=== PATIENT | male | born 1980 | race Caucasian/White ===

== ENCOUNTER → 2018-03-22 | Outpatient (REF) | payer OTHER ==
[2018-03-22 20:35] LABS: % NORMAL FORMS 9 % (>=4); IMMOTILITY 45 %; NON PROGRESSIVE MOTILITY (c) 18 %; PROGRESSIVE MOTILITY (a) 37 % (>=32); SEMEN APPEARANCE OPAQUE (OPAQUE); SEMEN VISCOSITY LIQUID (LIQUID); SEMEN VOLUME 3.6 ml (4.0-5.0); SPERM ABNORMAL FORMS WBC'S NOTED; SPERM CONCENTRATION 19.8 M/ml (>=15.0); SPERM# 71.2 M/Ejac (>=39); TOTAL MOTILITY 55 % (>=40); WBC CONCENTRATION >1 M/ml (<=1 M/ml)
[2018-03-22 20:36] LABS: TOTAL FUNCTIONAL 5.5 M/Ejac.; TOTAL PROGRESSIVE SPERM 26.6 M/Ejac.
== END ==
LOC: M LAB REF 15:56
DX: N46.9 Male infertility, unspecified (principal)
CPT/HCPCS: 89320

== ENCOUNTER 2018-12-26 17:26 | Emergency (ER) | payer OTHER ==
[~2018-12-26] VITALS: Ht 180.3 cm; Wt 93.2 kg
[2018-12-26] MEDS ORDERED: KETOROLAC 30 MG/ML VIAL (J1885) IV ONE (18:00)
[2018-12-26] MEDS ORDERED: NS 1,000 ML IV ONE (18:00)
[2018-12-26] MEDS ORDERED: ACETAMINOPHEN 500 MG TAB PO ONE (18:00)
[2018-12-26] MEDS ORDERED: ONDANSETRON 4MG/2ML VIAL (J2405) IV ONE (18:00)
[2018-12-26 18:04] LABS: BASO # 0.1 10^3/uL (0.0-0.2); BASO % 0.5 % (0.0-1.0); EOS % 0.3 % (0.0-3.0); HEMATOCRIT 42.5 % (42.0-52.0); HEMOGLOBIN 14.2 g/dl (13.5-17.5); LYMPH # 2.9 10^3/uL (1.5-5.0); LYMPH % 24.4 % (24.0-44.0); MEAN CORPUSCULAR HEMOGLOBIN 30.7 pg (27.0-33.0); MEAN CORPUSCULAR HGB CONC 33.4 g/dl (32.0-36.5); MONO # 1.1 10^3/uL (0.0-0.8); MONO % 9.4 % (0.0-5.0); NEUTROPHILS # 7.8 10^3/uL (1.5-8.5); NEUTROPHILS % 65.1 % (36.0-66.0); PLATELET COUNT, AUTOMATED 335 10^3/uL (150-450); RED BLOOD COUNT 4.62 10^6/uL (4.30-6.10); WHITE BLOOD COUNT 11.9 10^3/uL (4.0-10.0)
--- NOTE | 2018-12-26 18:42 | REPVR ---
EXAM: CT Abdomen and Pelvis Without Contrast EXAM DATE/TIME: 12/26/2018 5:59 PM CLINICAL HISTORY: 38 years old, male; Abdominal pain; Flank; Left; Additional info: Left lq/flank pain TECHNIQUE: Imaging protocol: Computed tomography of the abdomen and pelvis without contrast. Radiation optimization: All CT scans at this facility use at least one of these dose optimization techniques: automated exposure control; mA and/or kV adjustment per patient size (includes targeted exams where dose is matched to clinical indication); or iterative reconstruction. COMPARISON: No relevant prior studies available. FINDINGS: Liver: Normal. No mass. Gallbladder and bile ducts: There has been a cholecystectomy. Pancreas: Normal. No ductal dilation. Spleen: Normal. No splenomegaly. Adrenals: Normal. No mass. Kidneys and ureters: Low attenuation foci in the anterior aspect of the right kidney not definitely cystic. Ultrasound correlation suggested. There is a 3 mm. obstructive ureteral calculus located at the left UV junction resulting in mild proximal hydroureteronephrosis. There is minimal periureteral and perinephric stranding. No urinoma demonstrated. Stomach and bowel: Unremarkable. No obstruction. No mucosal thickening. Appendix: No evidence of appendicitis. Intraperitoneal space: Unremarkable. No free air. No significant fluid collection. Vasculature: Unremarkable. No abdominal aortic aneurysm. Lymph nodes: Unremarkable. No enlarged lymph nodes. Bladder: Unremarkable as visualized. Reproductive: The prostate gland demonstrates mild hyperplasia. Bones/joints: Mild central spinal stenosis L4-5. Soft tissues: Unremarkable. IMPRESSION: 1. There has been a cholecystectomy. 2. Low attenuation foci in the anterior aspect of the right kidney not definitely cystic. Ultrasound correlation suggested. 3. There is a 3 mm. obstructive ureteral calculus located at the left UV junction resulting in mild proximal hydroureteronephrosis. There is minimal periureteral and perinephric stranding. No urinoma demonstrated. 4. Mild prostatic hyperplasia. Electronically signed by: Daryn Alves On 12/26/2018 18:41:48 PM
[2018-12-26] MEDS ORDERED: POTASSIUM CHLORIDE 10 MEQ SR TABLET PO ONE (18:45)
[2018-12-26] MEDS ORDERED: KETAMINE HCL IV ONE (19:00)
[2018-12-26] MEDS ORDERED: D5W IV ONE (19:00)
[2018-12-26] MEDS ORDERED: FLOM0.4C39 PO (22:07)
[2018-12-26 22:14] VITALS: BP 134/60
[2018-12-27] MEDS ORDERED: ACET-683 PO (15:00)
[2018-12-27] MEDS ORDERED: KETO10TAB PO (19:10)
[2018-12-27] MEDS ORDERED: OXYC1TAB23 PO (19:10)
--- NOTE | 2019-01-01 20:08 | ED PDOC ---
Post-Departure Follow-Up ft jacqueline nielsen faxed formal report of ct abd/p for fu Costa Mcconnell MD Jan 01, 2019 20:08
== END 2018-12-26 22:16 | disposition home or self-care (01) ==
LOC: M ED 17:26
DX: E87.6 Hypokalemia (principal); N13.0 Hydronephrosis with ureteropelvic junction obstruction; R11.0 Nausea; Z87.442 Personal history of urinary calculi
CPT/HCPCS: 74176; 80047; 81001; 85025; 96365; 96375; 99284; J1885; J2405

== ENCOUNTER 2018-12-27 14:52 | Emergency (ER) | payer OTHER ==
[~2018-12-27] VITALS: Ht 180.3 cm; Wt 93.2 kg
[~2018-12-27 14:52] MED LIST: FLOM0.4C39 PO
[2018-12-27] MEDS ORDERED: ACET-683 PO (15:00)
[2018-12-27] MEDS ORDERED: NS 1,000 ML IV ONE (16:45)
[2018-12-27] MEDS ORDERED: KETOROLAC 30 MG/ML VIAL (J1885) IV ONE (16:45)
[2018-12-27 17:31] LABS: BASO % 0.2 % (0.0-1.0); EOS % 0.3 % (0.0-3.0); HEMATOCRIT 41.1 % (42.0-52.0); HEMOGLOBIN 13.3 g/dl (13.5-17.5); LYMPH # 1.9 10^3/uL (1.5-5.0); LYMPH % 18.5 % (24.0-44.0); MEAN CORPUSCULAR HEMOGLOBIN 30.5 pg (27.0-33.0); MEAN CORPUSCULAR HGB CONC 32.4 g/dl (32.0-36.5); MEAN CORPUSCULAR VOLUME 94.3 fl (80.0-96.0); MONO # 0.8 10^3/uL (0.0-0.8); MONO % 7.8 % (0.0-5.0); NEUTROPHILS # 7.4 10^3/uL (1.5-8.5); PLATELET COUNT, AUTOMATED 314 10^3/uL (150-450); RED BLOOD COUNT 4.36 10^6/uL (4.30-6.10); WHITE BLOOD COUNT 10.1 10^3/uL (4.0-10.0)
[2018-12-27 17:50] LABS: BLOOD UREA NITROGEN 9 MG/DL (7-18); CALCIUM LEVEL 8.6 MG/DL (8.5-10.1); CARBON DIOXIDE LEVEL 25 MEQ/L (21-32); CHLORIDE LEVEL 108 MEQ/L (98-107); CREATININE FOR GFR 0.97 MG/DL (0.70-1.30); GLOMERULAR FILTRATION RATE > 60.0 (>60); GLUCOSE, FASTING 84 MG/DL (70-100); POTASSIUM SERUM 4.3 MEQ/L (3.5-5.1); SODIUM LEVEL 140 MEQ/L (136-145)
[2018-12-27] MEDS ORDERED: HYDROMORPHONE HCL 0.5 MG/ 0.5 ML SYRINGE (J1170 PER 1) IV PRN (18:00)
--- NOTE | 2018-12-27 18:31 | REPVR ---
PROCEDURE INFORMATION: Exam: US Retroperitoneal Limited, Kidneys Exam date and time: 12/27/2018 6:01 PM Clinical history: 38 years old, male; Abdominal pain; Flank; Left lower quadrant (llq); Additional info: Hydronephrosis- left TECHNIQUE: Imaging protocol: Real-time ultrasound of the retroperitoneum with image documentation. Examination was focused on the kidneys. COMPARISON: CT ABD PELVIS W/O CONTRAST 12/26/2018 5:55 PM FINDINGS: Right kidney: Right kidney measures 12 x 5.6 x 5.3 cm. 3 renal cysts demonstrated measuring up to 1.8 x 2.4 x 1.2 cm in the lateral aspect of the right kidney. Left kidney: Left kidney measures 10.4 x 4.5 x 6.7 cm. Bladder: Echogenic focus in the approximate location of the left UV junction measures 3 x 2.5 x 4 mm associated with edema at the UV junction may represent an obstructive ureteral calculus however there is no left hydronephrosis. No ureteral jets demonstrated. IMPRESSION: 1. Echogenic focus in the approximate location of the left UV junction measures 3 x 2.5 x 4 mm associated with edema at the UV junction may represent an obstructive ureteral calculus however there is no left hydronephrosis. 2. Several right renal cysts. Electronically signed by: Daryn Alves On 12/27/2018 18:30:52 PM
[2018-12-27] MEDS ORDERED: OXYC1TAB23 PO (19:10)
[2018-12-27] MEDS ORDERED: KETO10TAB PO (19:10)
[2018-12-27 19:56] VITALS: BP 142/80
== END 2018-12-27 19:59 | disposition home or self-care (01) ==
LOC: M ED 14:52 → EDBD 14:52 → M ED 19:59
DX: N20.1 Calculus of ureter (principal); Z87.442 Personal history of urinary calculi; Z79.899 Other long term (current) drug therapy
CPT/HCPCS: 76775; 80048; 81001; 85025; 96361; 96374; 99284; J1885

== ENCOUNTER → 2019-01-09 | Outpatient (REF) | payer OTHER ==
[~2019-01-09] MED LIST changes: +ACET-683 PO; +KETO10TAB PO; +OXYC1TAB23 PO
[2019-01-09 12:18] LABS: APPEARANCE, URINE CLEAR (CLEAR); BACTERIA, URINE AUTO NEGATIVE (NEGATIVE); BILIRUBIN, URINE AUTO NEGATIVE (NEGATIVE); BLOOD, URINE BLOOD 2+ (NEGATIVE); CALCIUM OXALATE CRYSTALS SMALL; COLOR, URINE YELLOW (YELLOW); GLUCOSE, URINE (UA) AUTO NEGATIVE (NEGATIVE); KETONE, URINE AUTO NEGATIVE (NEGATIVE); LEUKOCYTE ESTERASE, URINE AUTO NEGATIVE (NEGATIVE); MUCUS, URINE LARGE (NEGATIVE); NITRITE, URINE AUTO NEGATIVE (NEGATIVE); PROTEIN, URINE AUTO NEGATIVE (NEGATIVE); RBC, URINE AUTO 4 /HPF (0-3); SPECIFIC GRAVITY URINE AUTO 1.025 (1.002-1.035); SQUAMOUS EPITHELIAL CELL UR AU 0 /HPF (0-6); UROBILINOGEN, URINE AUTO 0.2 mg/dL (0.0-2.0); WBC, URINE AUTO 2 /HPF (0-3)
== END ==
LOC: M SMT 11:05
PROVIDERS: ATTEND Nurse Practitioner Family
DX: N20.0 Calculus of kidney (principal)
CPT/HCPCS: 81001; 87086; G0463

== ENCOUNTER → 2019-01-11 | Outpatient (CLI) | payer OTHER ==
--- NOTE | 2019-01-11 10:31 | REP ---
REASON FOR EXAM: History of renal calculi. COMPARISON EXAMINATION: 12/27/2018. The prior examination showed 4 mm sized echogenic focus at the left UV junction and several renal cysts. The kidneys are unchanged in size, shape, and echo pattern. Once again, there are anechoic areas or nearly anechoic areas seen in the right kidney consistent with complex cysts. These are unchanged. There is no hydronephrosis on either side. IMPRESSION: No significant change from the prior exam. Complete urinary bladder ultrasonography was obtained. Color Doppler imaging shows bilateral Uro-Jet phenomenon at each UV junction. No abnormal echogenic foci are seen within the urinary bladder. There is no evidence of a mass or significant mucosal abnormality. The pre-void urinary bladder volume calculation is 539.4 mL and the postvoid urinary bladder volume calculation is 64.3 mL. This renders an 11.9 postvoid residual. IMPRESSION: No abnormality noted. Findings as described above. Electronically Signed by Jarett Harris DO 01/11/2019 02:34 P
== END ==
LOC: M RAD 07:12
PROVIDERS: ATTEND Nurse Practitioner Family
DX: N28.1 Cyst of kidney, acquired (principal)

== ENCOUNTER → 2019-01-25 | Outpatient (CLI) | payer OTHER ==
[~2019-01-25] MED LIST changes: +ISOVUE-370 76% 100ML VIAL (Q9967) As Ordered ONE
--- NOTE | 2019-01-26 07:51 | REP ---
Clinical: Evaluate complex renal cyst. Technique: Axial precontrast, contrast enhanced, and delayed images of the abdomen and pelvis using 100 ml Isovue 370 intravenous contrast material with coronal and sagittal re-formations. Comparison: 12/26/2018. Findings: Evaluation of the urinary tract system demonstrates 9 mm simple left renal cyst along with few simple right renal cysts measuring up to approximately 2 cm diameter. No further significant urinary tract abnormalities appreciated. Liver, spleen, pancreas and bilateral adrenal glands are normal. Evidence of prior cholecystectomy. The enteric system is without obstruction or acute inflammatory process. Scattered colonic diverticula noted without acute diverticulitis. Pelvis demonstrates normal bladder and age appropriate prostate/seminal vesicles. No ascites. No free air. No adenopathy. Abdominal aorta without aneurysm or dissection. Musculoskeletal structures are intact. Lung bases are clear. Impression: 1. Findings consistent with bilateral simple renal cysts (right greater than left). 2. Scattered sigmoid diverticula without acute diverticulitis. 3. No further acute abdominopelvic pathology appreciated. Electronically Signed by Leonid Stearns MD 01/26/2019 07:43 A
== END ==
LOC: M RAD 07:52
PROVIDERS: ATTEND Nurse Practitioner Family
DX: N28.1 Cyst of kidney, acquired (principal); R31.29 Other microscopic hematuria; K57.30 Diverticulosis of large intestine without perforation or abscess without bleeding
CPT/HCPCS: 74178; Q9967

== ENCOUNTER → 2019-02-07 | Outpatient (REF) | payer OTHER ==
[~2019-02-07] MED LIST changes: -ISOVUE-370 76% 100ML VIAL (Q9967) As Ordered ONE
[2019-02-07 17:53] LABS: APPEARANCE, URINE CLEAR (CLEAR); BACTERIA, URINE AUTO NEGATIVE (NEGATIVE); BILIRUBIN, URINE AUTO NEGATIVE (NEGATIVE); BLOOD, URINE BLOOD 1+ (NEGATIVE); COLOR, URINE YELLOW (YELLOW); GLUCOSE, URINE (UA) AUTO NEGATIVE (NEGATIVE); KETONE, URINE AUTO NEGATIVE (NEGATIVE); LEUKOCYTE ESTERASE, URINE AUTO NEGATIVE (NEGATIVE); MUCUS, URINE SMALL (NEGATIVE); NITRITE, URINE AUTO NEGATIVE (NEGATIVE); PROTEIN, URINE AUTO NEGATIVE (NEGATIVE); RBC, URINE AUTO 2 /HPF (0-3); SPECIFIC GRAVITY URINE AUTO 1.018 (1.002-1.035); SQUAMOUS EPITHELIAL CELL UR AU 0 /HPF (0-6); UROBILINOGEN, URINE AUTO 0.2 mg/dL (0.0-2.0); WBC, URINE AUTO 0 /HPF (0-3)
== END ==
LOC: M SMT 17:07
PROVIDERS: ATTEND Nurse Practitioner Family
DX: R31.29 Other microscopic hematuria (principal)

== ENCOUNTER → 2019-12-25 | Outpatient (REF) | payer OTHER ==
[2019-12-25 16:29] LABS: SEMEN APPEARANCE OPAQUE (OPAQUE); SEMEN VISCOSITY LIQUID (LIQUID); SEMEN VOLUME 6.7 ml (2.0-5.0)
[2019-12-25 16:30] LABS: WBC CONCENTRATION >1 M/ml (<=1 M/ml)
== END ==
LOC: M LAB REF 16:19
PROVIDERS: ATTEND Obstetrics & Gynecology
DX: N46.8 Other male infertility (principal)